=== PATIENT | female | born 1965 | race African-American/Black ===

== ENCOUNTER 2016-10-26 20:13 | Emergency (ER) | payer OTHER ==
[2016-10-26 20:21] VITALS: BP 101/65; PULSE 100; TEMP 98; BMI 28.8
[2016-10-26] MEDS ORDERED: predniSONE 20 MG TABLET (UD) PO ONE (21:14)
[2016-10-26] MEDS ORDERED: AMOX TR/POT CLAV 875MG/125MG TABLETS (FP) PO ONE (21:14)
--- NOTE | 2016-10-26 21:14 | PDOC ---
History of Present Illness - General Chief Complaint: Sore Throat Stated Complaint: SIDE FACE/EAR/THROAT HURT Time Seen by Provider: 10/26/16 20:35 History Source: Patient Exam Limitations: No Limitations - History of Present Illness Initial Comments: 10/26/16 21:14 Chief complaint: Severe nasal congestion, with postnasal dri, sore throat, clogged sensation rt. 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 She reports that she's had o'clock sensation to her right ear for approximately a year however no last few days it' s worse. She denies any fever area patient reports that her son was sick sick with similar symptoms. Patient denies any cough or any difficulty swallowing or breathing or any wheezing. Patient has been using Nataly, Zyrtec, Singulair, flonase and azelastine nasal spray daily out relief of symptoms. She denies any recent travel. 10/26/16 21:18 Timing/Duration: getting worse Severity: moderate Associated Symptoms: reports: other (SINUS PRESSURE RT. MAXILLA & FRONTAL SINUS AREA, NASAL CONGESTION, RT. EAR CLOGGED SENSATION, POST NASAL DRIP, NASAL DISCHARGE YELLOWISH) Past History - Past Medical History Allergies/Adverse Reactions: Allergies Allergy/AdvReac Type Severity Reaction Status Date / Time No Known Allergies Allergy Verified 10/26/16 20:21 Home Medications: Ambulatory Orders Azelastine HCl 137 mcg NS PRN PRN 10/28/14 Amox-Tr/K Cl [Augmentin - 875Mg Tablet] 1 tab PO BID #19 tablet 10/26/16 Prednisone [Deltasone] 20 mg PO BID #8 tablet 10/26/16 Tizanidine HCl 2 mg PO ASDIR 10/26/16 Anemia: No Asthma: Yes Cardiac Disorders: No CVA: No COPD: No CHF: No Diabetes: No GI Disorders: No Disorders: No HTN: Yes (ON MEDS.) Hypercholesterolemia: Yes (NOT ON MED) Kidney Stones: No Liver Disease: No Suicide Attempt (Hx): No Seizures: No Thyroid Disease: Yes (THYROID PROBLEM--H"HIGH THYROID" BUT NOT TAKING ANYTHING) - Surgical History Abdominal Surgery: Yes (g.sleeve) Orthopedic Surgery: Yes (SPINE SX DUE TO TUMOR IN SPINE 04/2012) - Reproductive History PID: No - Immunization History Td Vaccination: Yes Immunization Up to Date: Yes - Psycho/Social/Smoking Cessation Hx Anxiety: Yes Suicidal Ideation: No Smoking Status: No Smoking History: Never smoked Years of Tobacco Use: 2 Have you smoked in the past 12 months: Yes Number of Cigarettes Smoked Daily: 4 Cigars Per Day: 0 'Breaking Loose' booklet given: 10/28/14 Hx Alcohol Use: No Drug/Substance Use Hx: Yes (OXYCODONE/PERCOCETS) Substance Use Type: Prescribed Hx Substance Use Treatment: Yes Review of Systems - Review of Systems Able to Perform ROS?: Yes Constitutional: No: Symptoms Reported HEENTM: Yes: Nose Congestion (getting worse especially on rt. with discharge yellowish ), Throat Pain, Mouth Swelling (with post nasal dripo), Other (rt. sinus congestion maxilla, rt. frontal) Respiratory: No: Symptoms reported Cardiac (ROS): No: Symptoms Reported ABD/GI: No: Symptoms Reported Musculoskeletal: No: Symptoms Reported Integumentary: No: Symptoms Reported Neurological: No: Symptoms reported *Physical Exam - Vital Signs Last Vital Signs Temp Pulse Resp BP Pulse Ox 98 F 100 H 18 101/65 99 10/26/16 20:18 10/26/16 20:18 10/26/16 20:18 10/26/16 20:18 10/26/16 20:18 - Physical Exam General Appearance: Yes: Appropriately Dressed HEENT: positive: TMs Normal (rt. ), Pharyngeal Erythema, Tonsillar Erythema ( with no uvular deviation ]), Nasal Congestion (rt and left superior turbinate edema worse on rt. ), Sinus Tenderness (rt. maxilla, rt. frontal ), Hearing Grossly Normal (b/l ), TM Erythema (minimal rt. ear ). negative: TM Bulging, TM Dull Neck: negative: Lymphadenopathy (R), Lymphadenopathy (L) Respiratory/Chest: positive: Lungs Clear, Normal Breath Sounds. 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 She reports that she's had o'clock sensation to her right ear for approximately a year however no last few days it's worse. She denies any fever area patient reports that her son was sick sick with similar symptoms. Patient denies any cough or any difficulty swallowing or breathing or any wheezing. Patient has been using Nataly, Zyrtec, Singulair, flonase and azelastine nasal spray daily out relief of symptoms. She denies any recent travel. She reports that she has been followed by Dr. Bearden in the past for her sinus problems and chronic nasal congestion congestion Nasal congestion severe Sinusitis Plan: Augmentin 875/125 twice a day 10 days Prednisone 40 mg by mouth now then 20 mg twice a day times following 4 days Follow-up with ear nose and throat Dr. Bearden. *DC/Admit/Observation/Transfer Diagnosis at time of Disposition: Nasal congestion Sinusitis Qualifiers: Sinusitis location: unspecified location Chronicity: acute Recurrence: non- recurrent Qualified Code(s): J01.90 - Acute sinusitis, unspecified - Discharge Dispostion Disposition: HOME Condition at time of disposition: Stable - Prescriptions Prescriptions: Amox-Tr/K Cl [Augmentin - 875Mg Tablet] 1 tab PO BID #19 tablet Prednisone [Deltasone] 20 mg PO BID #8 tablet - Referrals Referrals: Zoran Bearden MD [Staff Physician] - - Patient Instructions Additional Instructions: fOLLow up with ear nose and throat Dr. Bearden as soon as possible Return to emergency room if symptoms worsen or new symptoms develop Continue with nasal sprays and antihistamines as previously ordered Patient voiced understanding of discharge instructions and all questions were answered
[2016-10-26] MEDS ORDERED: predniSONE 20 MG TABLET (UD) ONE (21:25)
[2016-10-26] MEDS ORDERED: AMOX TR/POT CLAV 875MG/125MG TABLETS (FP) ONE (21:25)
== END 2016-10-26 22:19 | disposition home or self-care (01) ==
LOC: JERFT 20:13
DX: R09.89 Other specified symptoms and signs involving the circulatory and respiratory systems (principal); J01.90 Acute sinusitis, unspecified; J45.909 Unspecified asthma, uncomplicated; Z72.0 Tobacco use
CPT/HCPCS: 99281-25

== ENCOUNTER 2017-03-17 19:56 | Emergency (ER) | payer OTHER ==
[2017-03-17 20:09] VITALS: TEMP 97.8; BMI 30.7
--- NOTE | 2017-03-17 20:26 | PDOC ---
History of Present Illness - History of Present Illness Initial Comments: 03/17/17 21:11 The patient is a 51 year old with a history of thyroid disease, HTN, and chronic neck and back pain who presents for evaluation of chest pain and SOB after smoking marijuana. The patient reports that she smoked marijuana earlier today. Earlier this evening, she began experiencing heart palpitations, poorly described chest pain and SOB with associated dizziness prompting her presentation to the ED today. She denies fevers, chills, abdominal pain, nausea , vomiting, or changes with urination or bowel movements. She states that she has never used marijuana in the past and denies any other illicit drug use. She denies smoking or alcohol use as well. <Ousmane Aleman - Last Filed: 03/17/17 23:59> <Julio Guevara - Last Filed: 03/18/17 00:58> - General Chief Complaint: Substance Abuse Stated Complaint: CHEST PAIN Time Seen by Provider: 03/17/17 20:19 Past History - Past Medical History Anemia: No Asthma: Yes Cardiac Disorders: No CVA: No COPD: No CHF: No Diabetes: No GI Disorders: No Disorders: No HTN: Yes (ON MEDS.) Hypercholesterolemia: Yes (NOT ON MED) Kidney Stones: No Liver Disease: No Seizures: No Thyroid Disease: Yes (THYROID PROBLEM--H"HIGH THYROID" BUT NOT TAKING ANYTHING) - Surgical History Abdominal Surgery: Yes (g.sleeve) Orthopedic Surgery: Yes (SPINE SX DUE TO TUMOR IN SPINE 04/2012) - Reproductive History PID: No - Immunization History Td Vaccination: Yes Immunization Up to Date: Yes - Suicide/Smoking/Psychosocial Hx Smoking Status: No Smoking History: Current some day smoker Years of Tobacco Use: 2 Have you smoked in the past 12 months: Yes Number of Cigarettes Smoked Daily: 4 Cigars Per Day: 0 Information on smoking cessation initiated: No 'Breaking Loose' booklet given: 10/28/14 Hx Alcohol Use: No Drug/Substance Use Hx: Yes (marajuana) Substance Use Type: Prescribed Hx Substance Use Treatment: Yes <Ousmane Aleman - Last Filed: 03/17/17 23:59> <Julio Guevara - Last Filed: 03/18/17 00:58> - Past Medical History Allergies/Adverse Reactions: Allergies Allergy/AdvReac Type Severity Reaction Status Date / Time No Known Allergies Allergy Verified 03/17/17 20:07 Home Medications: Ambulatory Orders Azelastine HCl 137 mcg NS PRN PRN 10/28/14 Amox-Tr/K Cl [Augmentin - 875Mg Tablet] 1 tab PO BID #19 tablet 10/26/16 Tizanidine HCl 2 mg PO ASDIR 10/26/16 Review of Systems - Review of Systems Comments:: 03/17/17 21:16 Constitutional: No fevers, chills, fatigue, malaise HEENT: No Rhinorrhea, nasal congestion, Cardiovascular: Chest pain. No syncope, palpitations, lightheadedness Respiratory: SOB. No Cough, Hemoptysis, Gastrointestinal: No Abdominal pain, Nausea, Vomiting, Constipation, Diarrhea, Melena Genitourinary: No Dysuria, Frequency, Urgency, Hesitancy, Hematuria, Flank pain Musculoskeletal: No Myalgia, arthralgia Skin: No rashes, itching, bruising, pallor Neurologic: Dizziness. No Headache, Numbness, Weakness, or Tingling <Ousmane Aleman - Last Filed: 03/17/17 23:59> *Physical Exam - Vital Signs Last Vital Signs Temp Pulse Resp BP Pulse Ox 97.8 F 129 H 18 144/76 95 03/17/17 20:07 03/17/17 20:07 03/17/17 20:07 03/17/17 20:07 03/17/17 20:07 - Physical Exam Comments: 03/17/17 21:17 General Appearance: Nourished. No Apparent Distress HEENT: EOMI, ZELAL[place]. No Pharyngeal Erythema, Tonsillar Exudate, Tonsillar Erythema Neck: No Cervical Lymphadenopathy Respiratory/Chest: Lungs Clear, Normal Breath Sounds. No Crackles, Rales, Rhonchi, Wheezing Cardiovascular: Regular Rhythm, Tachycardic. No JVD, Murmur, Gallops, Rubs Gastrointestinal/Abdominal: Normal Bowel Sounds, Soft. 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 <Ousmane Aleman - Last Filed: 03/17/17 23:59> - Vital Signs Last Vital Signs Temp Pulse Resp BP Pulse Ox 97.8 F 129 H 18 144/76 95 03/17/17 20:07 03/17/17 20:07 03/17/17 20:07 03/17/17 20:07 03/17/17 20:07 <Julio Guevara - Last Filed: 03/18/17 00:58> ED Treatment Course - LABORATORY CBC & Chemistry Diagram: 03/17/17 20:40 03/17/17 20:40 <Ousmane Aleman - Last Filed: 03/17/17 23:59> - LABORATORY CBC & Chemistry Diagram: 03/17/17 20:40 03/17/17 20:40 - ADDITIONAL ORDERS Additional order review: Laboratory Results 03/17/17 03/17/17 03/17/17 22:20 20:50 20:50 Sodium Potassium Chloride Carbon Dioxide Anion Gap BUN Creatinine Creat Clearance w eGFR Random Glucose Calcium Total Bilirubin AST ALT Alkaline Phosphatase Creatine Kinase Troponin I Total Protein Albumin Serum , Qual Negative Urine Color Dkyellow Urine Appearance Slcloudy Urine pH 5.0 D Ur Specific [place] 1.031 Urine Protein 2+ H Urine Glucose (UA) Negative Urine Ketones Negative Urine Blood Negative Urine Nitrite Negative Urine Bilirubin Negative Urine Urobilinogen Negative Urine RBC 1 Urine WBC 8 Ur Epithelial Cells Rare Urine Bacteria Rare Hyaline Casts 18 Urine Mucus Many Opiates Screen Negative Methadone Screen Negative Barbiturate Screen Negative Phencyclidine Screen Negative Ur Amphetamines Screen Negative MDMA (Ecstasy) Screen Negative Benzodiazepines Screen Negative Cocaine Screen Negative U Marijuana (THC) Screen Positive 03/17/17 20:40 Sodium 139 Potassium 3.2 L Chloride 106 Carbon Dioxide 23 Anion Gap 10 BUN 19 H Creatinine 1.0 D Creat Clearance w eGFR 58.00 Random Glucose 159 H D Calcium 8.4 L Total Bilirubin 0.4 D AST 25 D ALT 27 Alkaline Phosphatase 87 Creatine Kinase 116 Troponin I < 0.02 Total Protein 6.8 Albumin 3.4 Serum , Qual Urine Color Urine Appearance Urine pH Ur Specific [place] Urine Protein Urine Glucose (UA) Urine Ketones Urine Blood Urine Nitrite Urine Bilirubin Urine Urobilinogen Urine RBC Urine WBC Ur Epithelial Cells Urine Bacteria Hyaline Casts Urine Mucus Opiates Screen Methadone Screen Barbiturate Screen Phencyclidine Screen Ur Amphetamines Screen MDMA (Ecstasy) Screen Benzodiazepines Screen Cocaine Screen U Marijuana (THC) Screen 03/17/17 20:40 RBC 3.96 MCV 91.1 MCHC 33.3 RDW 16.1 H MPV 8.4 Neutrophils % 52.6 Lymphocytes % 38.2 Monocytes % 7.0 Eosinophils % 1.1 Basophils % 1.1 - Medications Given in the ED: ED Medications Discontinued Medications Generic Name Dose Route Start Last Admin Trade Name Martha PRN Reason Stop Dose Admin Sodium Chloride 1,000 mls @ 1,000 mls/hr 03/17/17 22:00 03/17/17 22:06 Normal Saline - IV 03/17/17 22:59 1,000 mls/hr ASDIR STA Administration Potassium Chloride 40 meq 03/17/17 22:07 03/17/17 22:18 K-Dur - PO 03/17/17 22:08 40 meq ONCE ONE Administration <Julio Guevara - Last Filed: 03/18/17 00:58> Medical Decision Making - Medical Decision Making 03/17/17 21:18 The patient is a 51 year old with a history of thyroid disease, HTN, and chronic neck and back pain who presents for evaluation of chest pain and SOB after smoking marijuana. Given her presenting symptoms with a normal physical exam following marijuana use, it is likely her pain is due to her marijuana use. However it is reasonable to evaluate for other etiologies including but not limited to: ACS, pneumonia, metabolic derangement. We have a low clinical suspicion for acs at this time given her physical exam and history. We will send a cbc, cmp, troponin, EKG, chest plain film, UA, and Utox to evaluate further. We will continue to monitor and reassess. 03/17/17 23:59 cbc demonstrated a wbc of 11.3. cmp, troponin was unremarkable as well as chest plain film. UA was unremarkable. Utox was positive for marijuana. Repeat ekg demonstrates normal sinus rhythm with a rate of 81. The patient reports an improvement in her symptoms after NS. We will repeat her troponin. Likely discharge home if troponin is negative. <Ousmane Aleman - Last Filed: 03/17/17 23:59> *DC/Admit/Observation/Transfer <Ousmane Aleman - Last Filed: 03/17/17 23:59> <Julio Guevara - Last Filed: 03/18/17 00:58> Diagnosis at time of Disposition: Substance abuse, Chest pain - Discharge Dispostion Disposition: HOME Condition at time of disposition: Improved - Referrals Referrals: Shahriar Das MD [Primary Care Provider] - - Patient Instructions Printed Discharge Instructions: DI for Chest Pain Additional Instructions: Please return to ED if you experience crushing chest pain, worsening shortness of breath, or worsening symptoms.
[2017-03-17 20:53] LABS: BASOPHIL 1.1 % (0-2.0); EOSINOPHIL 1.1 % (0-4.5); MCH 30.3 pg (25.7-33.7); MCHC 33.3 g/dl (32.0-36.0); MEAN CELL VOLUME 91.1 fl (80-96); MEAN PLT VOLUME 8.4 fl (7.5-11.1); NEUTROPHILS 52.6 % (42.8-82.8); PLATELET COUNT 248 K/MM3 (134-434); RDW 16.1 % (11.6-15.6); WHITE BLOOD COUNT 11.3 K/mm3 (4.0-10.0)
[2017-03-17 21:17] LABS: ALBUMIN 3.4 g/dl (3.4-5.0); ANION GAP 10 (8-16); BILIRUBIN,TOTAL 0.4 mg/dL (0.2-1.0); CALCIUM 8.4 mg/dL (8.5-10.1); CO2 23 mmol/L (21-32); GLUCOSE,RANDOM 159 mg/dL (74-106); SGPT/ALT 27 U/L (12-78); TOT PROT 6.8 g/dl (6.4-8.2)
[2017-03-17 21:19] LABS: ALK PHOS 87 U/L (45-117); TROPONIN I < 0.02 ng/ml (0.00-0.05)
[2017-03-17 21:20] LABS: CPK 116 IU/L (26-192); SGOT/AST 25 U/L (15-37)
[2017-03-17] MEDS ORDERED: SODIUM CHLORIDE 1,000 ML IV STA (22:00)
[2017-03-17] MEDS ORDERED: POTASSIUM CHLORIDE TABS 20 MEQ TABLET.ER (FP) PO ONE ×2 (22:07→22:15)
[2017-03-17 22:29] LABS: URINE APPEARANCE SLCLOUDY; URINE BILIRUBIN NEGATIVE (NEGATIVE); URINE BLOOD NEGATIVE (NEGATIVE); URINE COLOR DKYELLOW; URINE GLUCOSE (UA) NEGATIVE (NEGATIVE); URINE KETONE NEGATIVE (NEGATIVE); URINE NITRITE NEGATIVE (NEGATIVE); URINE UROBILINOGEN NEGATIVE mg/dL (0.2-1.0)
[2017-03-17 23:01] LABS: URINE PROTEIN 2+ (NEGATIVE)
[2017-03-17 23:05] LABS: URINE MARIJUANA THC POSITIVE ng/ml (CUTOFF=50)
[2017-03-17 23:13] LABS: URINE BACTERIA RARE /hpf (NONE SEEN); URINE HYALINE CAST 18 /lpf; URINE MUCUS MANY; URINE RBC 1 /hpf (0-3); URINE WBC 8 /hpf (3-5)
--- NOTE | 2017-03-18 00:51 | PDOC ---
*Physical Exam - Vital Signs Last Vital Signs Temp Pulse Resp BP Pulse Ox 97.8 F 129 H 18 144/76 95 03/17/17 20:07 03/17/17 20:07 03/17/17 20:07 03/17/17 20:07 03/17/17 20:07 - Physical Exam Comments: 03/18/17 00:51 GENERAL: Awake, alert, and fully oriented, in no acute distress HEAD: No signs of trauma, normocephalic, atraumatic EYES: PERRLA, EOMI, sclera anicteric, conjunctiva clear ENThearing grossly normal, nares patent, oropharynx clear without exudates. Moist mucosa NECK: Normal ROM, supple, no lymphadenopathy, JVD, or masses LUNGS: No distress, speaks full sentences, clear to auscultation bilaterally HEART: Regular rate and rhythm, normal S1 and S2, no murmurs, rubs or gallops, peripheral pulses normal and equal bilaterally. EXTREMITIES : Normal inspection, Normal range of motion, no edema. No clubbing or cyanosis. SKIN: Warm, Dry, normal turgor, no rashes or lesions noted. ED Treatment Course - LABORATORY CBC & Chemistry Diagram: 03/17/17 20:40 03/17/17 20:40 - ADDITIONAL ORDERS Additional order review: Laboratory Results 03/17/17 03/17/17 03/17/17 22:20 20:50 20:50 Sodium Potassium Chloride Carbon Dioxide Anion Gap BUN Creatinine Creat Clearance w eGFR Random Glucose Calcium Total Bilirubin AST ALT Alkaline Phosphatase Creatine Kinase Troponin I Total Protein Albumin Serum , Qual Negative Urine Color Dkyellow Urine Appearance Slcloudy Urine pH 5.0 D Ur Specific [place] 1.031 Urine Protein 2+ H Urine Glucose (UA) Negative Urine Ketones Negative Urine Blood Negative Urine Nitrite Negative Urine Bilirubin Negative Urine Urobilinogen Negative Urine RBC 1 Urine WBC 8 Ur Epithelial Cells Rare Urine Bacteria Rare Hyaline Casts 18 Urine Mucus Many Opiates Screen Negative Methadone Screen Negative Barbiturate Screen Negative Phencyclidine Screen Negative Ur Amphetamines Screen Negative MDMA (Ecstasy) Screen Negative Benzodiazepines Screen Negative Cocaine Screen Negative U Marijuana (THC) Screen Positive 03/17/17 20:40 Sodium 139 Potassium 3.2 L Chloride 106 Carbon Dioxide 23 Anion Gap 10 BUN 19 H Creatinine 1.0 D Creat Clearance w eGFR 58.00 Random Glucose 159 H D Calcium 8.4 L Total Bilirubin 0.4 D AST 25 D ALT 27 Alkaline Phosphatase 87 Creatine Kinase 116 Troponin I < 0.02 Total Protein 6.8 Albumin 3.4 Serum , Qual Urine Color Urine Appearance Urine pH Ur Specific [place] Urine Protein Urine Glucose (UA) Urine Ketones Urine Blood Urine Nitrite Urine Bilirubin Urine Urobilinogen Urine RBC Urine WBC Ur Epithelial Cells Urine Bacteria Hyaline Casts Urine Mucus Opiates Screen Methadone Screen Barbiturate Screen Phencyclidine Screen Ur Amphetamines Screen MDMA (Ecstasy) Screen Benzodiazepines Screen Cocaine Screen U Marijuana (THC) Screen 03/17/17 20:40 RBC 3.96 MCV 91.1 MCHC 33.3 RDW 16.1 H MPV 8.4 Neutrophils % 52.6 Lymphocytes % 38.2 Monocytes % 7.0 Eosinophils % 1.1 Basophils % 1.1 - Medications Given in the ED: ED Medications Discontinued Medications Generic Name Dose Route Start Last Admin Trade Name Freq PRN Reason Stop Dose Admin Sodium Chloride 1,000 mls @ 1,000 mls/hr 03/17/17 22:00 03/17/17 22:06 Normal Saline - IV 03/17/17 22:59 1,000 mls/hr ASDIR STA Administration Potassium Chloride 40 meq 03/17/17 22:07 03/17/17 22:18 K-Dur - PO 03/17/17 22:08 40 meq ONCE ONE Administration Medical Decision Making - Medical Decision Making 03/18/17 00:50 51 year old F with h/o of thyroid disease, HTN, who presents with chest pain and SOB after smoking marijuana. Physical exam unremarkable with low suspicion for ACS/DE . Consider pneumonia, metabolic derangement. Cbc, Cmp, troponin, EKG , CXR, UA, unremarkable. Utox positive for marijuana. Initial EKG with sinus tachycardia. Repeat EKG NSR. Improvement of symptoms with gentle IV hydration NS. Repeat Trop and reassess. Received Handoff from Dr. Aleman. ED Course: 03/18/17 00:54 Trop: Neg Stable D/c. *DC/Admit/Observation/Transfer Diagnosis at time of Disposition: Substance abuse Chest pain Qualifiers: Chest pain type: other chest pain Qualified Code(s): R07.89 - Other chest pain ; R07.89 - Other chest pain; R07.8 - Other chest pain - Discharge Dispostion Disposition: HOME Condition at time of disposition: Improved Admit: No - Patient Instructions Printed Discharge Instructions: DI for Chest Pain Additional Instructions: Please return to ED if you experience crushing chest pain, worsening shortness of breath, or worsening symptoms. - Attestations Physician Attestion: 03/18/17 00:57 I attest to the information provided in this note.
[2017-03-18 00:55] LABS: CPK 77 IU/L (26-192)
[2017-03-18 00:56] LABS: TROPONIN I < 0.02 ng/ml (0.00-0.05)
--- NOTE | 2017-03-18 01:24 | PDOC ---
Attending Attestation - Resident Resident Name: Ousmane Aleman - ED Attending Attestation I have performed the following: I have examined & evaluated the patient, The case was reviewed & discussed with the resident, I agree w/resident's findings & plan, Exceptions are as noted - HPI HPI: 03/18/17 01:23 51 yo female smoked marihuana tonight and dev tachycardia - Physicial Exam PE: 03/18/17 01:24 wnwd 51 yo female initially tachycardic and anxious HEENT wnl neck no jvd,no bruits lungs cta b/l cvs tachy abd soft,nontender extremities no pitting edema neuro axox3, no gross focal deficits skin no rashes psych appropriate - Medical Decision Making 03/18/17 01:27 2 sets negative cardiac enzymes/pt feels fine after IVF and now wants to go home repeat ekg is NSR imp Palpitations related to drug use
[2017-03-18 01:31] VITALS: BP 143/76; PULSE 91
[2017-03-18 09:15] LABS: URINE LEUK ESTERASE Negative (NEGATIVE)
--- NOTE | 2017-03-18 13:52 | EKG ---
Test Reason : Blood Pressure : / mmHG Vent. Rate : 081 BPM Atrial Rate : 081 BPM P-R Int : 168 ms QRS Dur : 090 ms QT Int : 434 ms P-R-T Axes : 072 005 047 degrees QTc Int : 504 ms NORMAL SINUS RHYTHM PROLONGED QT ABNORMAL ECG NO PREVIOUS ECGS AVAILABLE REPEAT EKG IF CLINICALLY INDICATED Confirmed by DEYANIRA MULLEN MD ([id number]) on 03/18/2017 1:51:46 PM Referred By: Confirmed By:DEYANIRA MULLEN MD
--- NOTE | 2017-03-19 11:57 | EKG ---
Test Reason : Blood Pressure : / mmHG Vent. Rate : 128 BPM Atrial Rate : 128 BPM P-R Int : 150 ms QRS Dur : 102 ms QT Int : 304 ms P-R-T Axes : 047 -33 077 degrees QTc Int : 443 ms POOR DATA QUALITY, INTERPRETATION MAY BE ADVERSELY AFFECTED SINUS TACHYCARDIA POSSIBLE LEFT ATRIAL ENLARGEMENT LEFT AXIS DEVIATION NONSPECIFIC ST AND T WAVE ABNORMALITY ABNORMAL ECG NO PREVIOUS ECGS AVAILABLE Confirmed by DONA VALLE, CHUCK ([id number]) on 03/19/2017 11:57:06 AM Referred By: Confirmed By:CHUCK CARCAMO MD
== END 2017-03-18 01:32 | disposition home or self-care (01) ==
LOC: JER 19:56
PROC: 3E0337Z Introduction of Electrolytic and Water Balance Substance into Peripheral Vein, Percutaneous Approach (ICD-10-PCS; principal; 2017-03-17)
DX: F12.10 Cannabis abuse, uncomplicated (principal); E07.89 Other specified disorders of thyroid; M54.2 Cervicalgia; M54.5 Low back pain; G89.29 Other chronic pain; E87.6 Hypokalemia
CPT/HCPCS: 36415; 71020-TC; 80053; 80307; 81003; 81015; 82550; 84484; 84703; 85025; 93005; 93010; 99283-25

== ENCOUNTER 2017-04-20 16:40 | Emergency (ER) | payer OTHER ==
[2017-04-20 16:46] VITALS: BP 151/75; PULSE 90; TEMP 97.6; BMI 29.3
--- NOTE | 2017-04-20 17:01 | PDOC ---
History of Present Illness - General Chief Complaint: Injury Stated Complaint: FALL INJURY Time Seen by Provider: 04/20/17 16:54 History Source: Patient Exam Limitations: No Limitations - History of Present Illness Initial Comments: 04/20/17 22:34 51 y/o female with c/o rt sided back , neck and wrist pain after falling in a department store. Pt did not hit her head but states hx of cervical fusion and laminectomy with hardware. Occurred: reports: just prior to arrival Past History - Past Medical History Allergies/Adverse Reactions: Allergies Allergy/AdvReac Type Severity Reaction Status Date / Time No Known Allergies Allergy Verified 04/20/17 16:46 Home Medications: Ambulatory Orders Cyclobenzaprine HCl [Flexeril -] 5 mg PO TID PRN #12 tablet 04/20/17 Ibuprofen [Motrin -] 600 mg PO TID PRN #21 tablet 04/20/17 Anemia: No Asthma: Yes Cardiac Disorders: No CVA: No COPD: No CHF: No Diabetes: No GI Disorders: No Disorders: No HTN: Yes Hypercholesterolemia: Yes Kidney Stones: No Liver Disease: No Seizures: No Thyroid Disease: Yes (THYROID PROBLEM--H"HIGH THYROID" BUT NOT TAKING ANYTHING) - Surgical History Abdominal Surgery: Yes (g.sleeve) Gastric Stapling: No (GASTRIC SLEEVE) Orthopedic Surgery: Yes (SPINE SX DUE TO TUMOR IN SPINE 04/2012) - Reproductive History PID: No - Immunization History Td Vaccination: Yes Immunization Up to Date: Yes - Suicide/Smoking/Psychosocial Hx Smoking Status: No Smoking History: Never smoked Years of Tobacco Use: 2 Have you smoked in the past 12 months: Yes Number of Cigarettes Smoked Daily: 4 Cigars Per Day: 0 'Breaking Loose' booklet given: 10/28/14 Hx Alcohol Use: No Drug/Substance Use Hx: No Substance Use Type: None Hx Substance Use Treatment: Yes Trauma Specific PMHX - Complaint Specific PMHX Arthritis: Yes (HANDS KNEES FEET) Review of Systems - Review of Systems Able to Perform ROS?: Yes Constitutional: No: Symptoms Reported Musculoskeletal: Yes: Back Pain, Joint Pain, Neck Pain Integumentary: No: Symptoms Reported Neurological: No: Symptoms reported *Physical Exam - Vital Signs Last Vital Signs Temp Pulse Resp BP Pulse Ox 97.6 F 90 20 151/75 100 04/20/17 16:41 04/20/17 16:41 04/20/17 16:41 04/20/17 16:41 04/20/17 16:41 - Physical Exam General Appearance: Yes: Nourished, Appropriately Dressed. No: Apparent Distress HEENT: positive: EOMI, ZELALEM, TMs Normal. negative: Pharynx Normal, Pale Conjunctivae Neck: positive: Tender (C5 to C7), Supple. negative: Decreased range of motion Respiratory/Chest: positive: Lungs Clear, Normal Breath Sounds. negative: Chest Tender, Respiratory Distress, Accessory Muscle Use Gastrointestinal/Abdominal: positive: Soft. negative: Tenderness Musculoskeletal: positive: Vertebral Tenderness (l2-L5. bilateral paraspinous) Extremity: positive: Normal Capillary Refill, Normal Inspection, Normal Range of Motion, Tender (dorsal aspect of right wrist) Integumentary: positive: Normal Color, Warm, Moist. negative: Ecchymosis Neurologic: positive: Motor Strength 5/5 (ambulatory) Medical Decision Making - Medical Decision Making 04/20/17 18:00 Patient with complaints of back pain and right wrist pain along with neck pain after falling at a department store. Patient had tenderness to her cervical and lumbar region along with her right wrist. Patient history of laminectomy with cervical fusion. Patient ordered for x-rays of the right wrist cervical, lumbar region. 04/20/17 18:16 X-rays negative for acute findings. Patient ordered for Motrin and will discharge home with Motrin and Flexeril. *DC/Admit/Observation/Transfer Diagnosis at time of Disposition: Fall - Discharge Dispostion Disposition: HOME Condition at time of disposition: Good - Prescriptions Prescriptions: Cyclobenzaprine HCl [Flexeril -] 5 mg PO TID PRN #12 tablet PRN Reason: Back Pain Ibuprofen [Motrin -] 600 mg PO TID PRN #21 tablet PRN Reason: Pain - Referrals - Patient Instructions Printed Discharge Instructions: DI for Low Back Pain Additional Instructions: Your x-rays were negative for fracture or dislocation. I do recommend taking Motrin and Flexeril for discomfort. Also apply ice to the affected area for the next 3 days as much as you can tolerate. - Post Discharge Activity
[2017-04-20] MEDS ORDERED: IBUPROFEN 600 MG TABLET (FP) PO ONE ×2 (18:10→18:12)
== END 2017-04-20 18:20 | disposition home or self-care (01) ==
LOC: JERFT 16:40
DX: M54.2 Cervicalgia (principal); M54.5 Low back pain; M25.531 Pain in right wrist; W18.39XA Other fall on same level, initial encounter; Y93.89 Activity, other specified; Y92.59 Other trade areas as the place of occurrence of the external cause; Y99.8 Other external cause status; I10 Essential (primary) hypertension; E78.00 Pure hypercholesterolemia, unspecified; J45.909 Unspecified asthma, uncomplicated
CPT/HCPCS: 72050-TC; 72100-TC; 73110-TC-RT; 99281-25

== ENCOUNTER 2018-04-26 10:34 | Emergency (ER) | payer OTHER ==
[2018-04-26 10:49] VITALS: BP 104/64; PULSE 89; TEMP 98; BMI 31.7
--- NOTE | 2018-04-26 11:30 | PDOC ---
History of Present Illness - General Chief Complaint: Injury Stated Complaint: LT HAND INJURY Time Seen by Provider: 04/26/18 11:03 History Source: Patient Exam Limitations: No Limitations - History of Present Illness Initial Comments: 04/26/18 11:56 Patient came for evaluation of infection to left middle digit. States had hangnail/paronychia which she chewed a few days ago which caused worsen swelling and pain. States had some fluctuant and purulent drainage released this morning. Was going to in size with a paperclip but decided to calm for further evaluation. Denies fever, has some mild swelling. Occurred: reports: just prior to arrival, yesterday Severity: reports: mild, moderate Pain Location: reports: upper extremity (left 3rd digit ) Past History - Travel Traveled outside of the country in the last 30 days: No Close contact w/someone who was outside of country & ill: No - Past Medical History Allergies/Adverse Reactions: Allergies Allergy/AdvReac Type Severity Reaction Status Date / Time No Known Allergies Allergy Verified 04/26/18 10:45 Home Medications: Ambulatory Orders Montelukast Sodium [Singulair] 10 mg PO HS 04/26/18 Sulfamethoxazole/Trimethoprim [Bactrim *Ds*] 1 each PO BID #10 tablet 04/26/18 Anemia: No Asthma: Yes Cardiac Disorders: No CVA: No COPD: No CHF: No Diabetes: No GI Disorders: No Disorders: No HTN: Yes Hypercholesterolemia: Yes Kidney Stones: No Liver Disease: No Seizures: No Thyroid Disease: Yes (THYROID PROBLEM--H"HIGH THYROID" BUT NOT TAKING ANYTHING) - Surgical History Abdominal Surgery: Yes (g.sleeve) Gastric Stapling: No (GASTRIC SLEEVE) Orthopedic Surgery: Yes (SPINE SX DUE TO TUMOR IN SPINE 04/2012) - Reproductive History PID: No - Immunization History Td Vaccination: Yes Immunization Up to Date: Yes - Suicide/Smoking/Psychosocial Hx Smoking Status: No Smoking History: Never smoked Years of Tobacco Use: 2 Have you smoked in the past 12 months: Yes Number of Cigarettes Smoked Daily: 4 Cigars Per Day: 0 'Breaking Loose' booklet given: 10/28/14 Hx Alcohol Use: No Drug/Substance Use Hx: No Substance Use Type: None Hx Substance Use Treatment: Yes Trauma Specific PMHX - Complaint Specific PMHX Arthritis: Yes (HANDS KNEES FEET) Review of Systems - Review of Systems Able to Perform ROS?: Yes Is the patient limited Maltese proficient: Yes Constitutional: Yes: Symptoms Reported, See HPI, Malaise HEENTM: Yes: See HPI. No: Symptoms Reported Respiratory: No: Symptoms reported Integumentary: Yes: Symptoms Reported, See HPI, Erythema, Lesions All Other Systems: Reviewed and Negative *Physical Exam - Vital Signs Last Vital Signs Temp Pulse Resp BP Pulse Ox 98.0 F 89 18 104/64 100 04/26/18 10:45 04/26/18 10:45 04/26/18 10:45 04/26/18 10:45 04/26/18 10:45 - Physical Exam General Appearance: Yes: Nourished, Appropriately Dressed, Apparent Distress, Mild Distress HEENT: positive: ZELALEM, Normal ENT Inspection, TMs Normal, Pharynx Normal Neck: positive: Supple. negative: Tender Respiratory/Chest: positive: Lungs Clear Musculoskeletal: positive: Normal Inspection Extremity: positive: Normal Capillary Refill, Normal Range of Motion. negative : Normal Inspection Integumentary: positive: Other (Mild swelling without fluctuance to the distal radial aspect of left third digit/paronychial infection with some macerated skin urine has full range of motion to finger, has no joint tenderness, no streaking. Bed is intact). negative: Normal Color Neurologic: positive: diet counselor II-XII NML intact, Fully Oriented, Alert, Normal Mood/ Affect Moderate Sedation - Procedure Monitoring Vital Signs: Procedure Monitoring Vital Signs Temperature 98.0 F 04/26/18 10:45 Pulse Rate 89 04/26/18 10:45 Respiratory Rate 18 04/26/18 10:45 Blood Pressure 104/64 04/26/18 10:45 O2 Sat by Pulse Oximetry (%) 100 04/26/18 10:45 Progress Note - Progress Note Progress Note: aronychia infection, incised and drained with minimal purulent drainage/. will start on Bactrim / Boostrix updated today *DC/Admit/Observation/Transfer Diagnosis at time of Disposition: Paronychia of finger of left hand - Discharge Dispostion Disposition: HOME Condition at time of disposition: Stable Decision to Admit order: No - Prescriptions Prescriptions: Sulfamethoxazole/Trimethoprim [Bactrim *Ds*] 1 each PO BID #10 tablet - Referrals Referrals: Marsha Rae MD [Primary Care Provider] - - Patient Instructions Printed Discharge Instructions: DI for Paronychia Additional Instructions: Rest, keep hand elevated Avoid heavy lifting or strenuous activity until healed Soak finger every 2-3 hours while awake for the next 2-3 days to keep continue to allow drainage Reapply bacitracin ointment and bulky dressing after each soaking May use ibuprofen or Tylenol for pain relief Followup with private physician in one to 2 days for wound check as needed Return immediately to emergency department or private doctor's for worsening redness, swelling, pain, streaking Take all of antibiotics until completed - Post Discharge Activity
[2018-04-26] MEDS ORDERED: DIPHTH,PERTUSS(ACELL),TET 0.5 ML DISP.SYRIN IM ONE ×2 (11:56→12:02)
== END 2018-04-26 12:11 | disposition home or self-care (01) ==
LOC: JERFT 10:34
PROC: 3E0234Z Introduction of Serum, Toxoid and Vaccine into Muscle, Percutaneous Approach (ICD-10-PCS; principal; 2018-04-26)
PROC: 0H9QXZZ Drainage of Finger Nail, External Approach (ICD-10-PCS; 2018-04-26)
DX: L03.012 Cellulitis of left finger (principal); Z98.84 Bariatric surgery status; J45.909 Unspecified asthma, uncomplicated; I10 Essential (primary) hypertension; E78.00 Pure hypercholesterolemia, unspecified; E07.9 Disorder of thyroid, unspecified; Z72.0 Tobacco use
CPT/HCPCS: 90715; 99282-25

== ENCOUNTER 2018-10-03 09:48 | Emergency (ER) | payer OTHER ==
[2018-10-03 09:56] VITALS: BP 115/81; PULSE 84; TEMP 97.7; BMI 31.1
[2018-10-03] MEDS ORDERED: PENICILLIN G BENZATHINE 1,200,000 UNIT/2 ML PFS IM ONE (10:44)
[2018-10-03] MEDS ORDERED: DEXAMETHASONE LIQUID 0.5 MG/5 ML 240 ML BULK BOTTLE PO ONE (10:45)
--- NOTE | 2018-10-03 10:45 | PDOC ---
History of Present Illness - General Chief Complaint: Cold Symptoms Stated Complaint: CONGESTED/RT EAR PAIN Time Seen by Provider: 10/03/18 10:07 Past History - Past Medical History Allergies/Adverse Reactions: Allergies Allergy/AdvReac Type Severity Reaction Status Date / Time No Known Allergies Allergy Verified 04/26/18 10:45 Home Medications: Ambulatory Orders Montelukast Sodium [Singulair] 10 mg PO HS 04/26/18 Sulfamethoxazole/Trimethoprim [Bactrim *Ds*] 1 each PO BID #10 tablet 04/26/18 Levocetirizine Dihydrochloride [Xyzal] 5 mg PO DAILY #30 tablet 10/03/18 Methylprednisolone [Medrol Dose Jb] 4 mg PO ASDIR #21 tablet 10/03/18 Anemia: No Asthma: Yes Cardiac Disorders: No CVA: No COPD: No CHF: No Diabetes: No GI Disorders: No Disorders: No HTN: Yes Hypercholesterolemia: Yes Kidney Stones: No Liver Disease: No Seizures: No Thyroid Disease: Yes (THYROID PROBLEM--H"HIGH THYROID" BUT NOT TAKING ANYTHING) - Surgical History Abdominal Surgery: Yes (g.sleeve) Gastric Stapling: No (GASTRIC SLEEVE) Orthopedic Surgery: Yes (SPINE SX DUE TO TUMOR IN SPINE 04/2012) - Reproductive History PID: No - Immunization History Td Vaccination: Yes Immunization Up to Date: Yes - Suicide/Smoking/Psychosocial Hx Smoking Status: No Smoking History: Never smoked Years of Tobacco Use: 2 Have you smoked in the past 12 months: No Number of Cigarettes Smoked Daily: 4 Cigars Per Day: 0 Information on smoking cessation initiated: No 'Breaking Loose' booklet given: 10/28/14 Hx Alcohol Use: No Drug/Substance Use Hx: No Substance Use Type: None Hx Substance Use Treatment: Yes *Physical Exam - Vital Signs Last Vital Signs Temp Pulse Resp BP Pulse Ox 97.7 F 84 18 115/81 100 10/03/18 09:53 10/03/18 09:53 10/03/18 09:53 10/03/18 09:53 10/03/18 09:53 *DC/Admit/Observation/Transfer Diagnosis at time of Disposition: Sinusitis Qualifiers: Sinusitis location: maxillary Chronicity: acute Recurrence: recurrent Qualified Code(s): J01.01 - Acute recurrent maxillary sinusitis - Discharge Dispostion Disposition: HOME Condition at time of disposition: Stable Decision to Admit order: No - Referrals Referrals: Jerad Bennett MD [Staff Physician] - - Patient Instructions Printed Discharge Instructions: DI for Sinusitis Additional Instructions: You were evaluated for your congestion today You have a sinus infection You were treated with bicillin and steroids today You were also sent a prescription for a medrol dose pack. Start taking it tomorrow Follow up with your ENT this week Return to the ER for any new or worsening symptoms - Post Discharge Activity
[2018-10-03] MEDS ORDERED: PENICILLIN G BENZATHINE 2,400,000 UNIT/4 ML PFS ONE (10:50)
[2018-10-03] MEDS ORDERED: DEXAMETHASONE SOD PHOSPHATE 10 MG/1 ML VIAL ONE (10:56)
== END 2018-10-03 11:16 | disposition home or self-care (01) ==
LOC: JERFT 09:48
DX: J01.01 Acute recurrent maxillary sinusitis (principal); I10 Essential (primary) hypertension; E78.00 Pure hypercholesterolemia, unspecified; J45.909 Unspecified asthma, uncomplicated
CPT/HCPCS: 99281-25

== ENCOUNTER 2020-05-17 18:50 | Emergency (ER) | payer OTHER ==
[2020-05-17 18:59] VITALS: BP 110/75; PULSE 94; BMI 32.4
--- OUTSIDE RECORDS SUMMARY | 2020-05-17 19:11 | XMS ---
:1965 Author Organization [facility] Support Name Relationship Address Phone [place] Unavailable [place] [address] JORGE LUIS COMER [address] [place] [address] Re-disclosure Warning The records that you are about to access may contain information from federally- assisted alcohol or drug abuse programs. If such information is present, then the following federally mandated warning applies: This information has been disclosed to you from records protected by federal confidentiality rules (42 CFR part 2). The federal rules prohibit you from making any further disclosure of this information unless further disclosure is expressly permitted by the written consent of the person to whom it pertains or as otherwise permitted by 42 CFR part 2. A general authorization for the release of medical or other information is NOT sufficient for this purpose. The Federal rules restrict any use of the information to criminally investigate or prosecute any alcohol or drug abuse patient.The records that you are about to access may contain highly sensitive health information, the redisclosure of which is protected by Article 27-F of the [facility] Public Health law. If you continue you may haveaccess to information: Regarding HIV / AIDS; Provided by facilities licensed or operated by the [facility] Office of Mental Health; or Provided by the [facility] Office for People With Developmental Disabilities. If such information is present, then the following [facility] mandated warning applies: This information has been disclosed to you from confidential records which are protected by state law. State law prohibits you from making any further disclosure of this information without the specific written consent of the person to whom it pertains, or as otherwise permitted by law. Any unauthorized further disclosure in violation of state law may result in a fine or custodial sentence or both. A general authorization for the release of medical or other information is NOT sufficient authorization for further disclosure. Results ID Date Data Source [id number] 05/02/2020 12:00:00 AM EST [facility] Name Value Range Interpretation Description Data Sup porting Code Source(s) Document(s ) Nasopharyngeal [facility] Swab SARS-CoV-2 / COVID-19 This lab was ordered by [facility] and reported by [facility]. ID Date Data Source [id number] 03/10/2020 11:46:00 AM EDT [facility] Name Value Range Interpretation Code Description Data Rubina rce(s) Supporting Document(s ) Rapid Covid [facility] Test (Nasal Swab) This lab was ordered by [facility] harden and reported by [facility]. Insurance Providers Payer name Policy type / Policy ID Covered Covered libertarian's Policy Plan Coverage type libertarian ID relationship to [employer] Information sierra
[2020-05-17] MEDS ORDERED: LIDOCAINE 5% TOPICAL PATCH TP ONE (19:38)
[2020-05-17] MEDS ORDERED: LIDOCAINE 5% TOPICAL PATCH ONE (19:45)
--- NOTE | 2020-05-17 20:07 | PDOC ---
History of Present Illness - General Chief Complaint: Back Pain Stated Complaint: BACK PAIN Time Seen by Provider: 05/17/20 19:05 History Source: Patient Exam Limitations: No Limitations - History of Present Illness Initial Comments: 05/17/20 20:00 Patient is a 54-year-old female with a history of hypertension presents to the ED with left lumbar back pain that started 1 week ago after helping her father move. She states the pain started soon after she helped her dad move. She denies any numbness or tingling. She denies any urinary or fecal incontinence or retention. She states the pain radiates down her left buttocks and left lower extremity. She denies any saddle anesthesia. The patient states she has been taking ibuprofen, Tylenol, muscle creams, and she has taken Tylenol 3 without any relief. The patient states that she had a 2 level lumbar fusion a few years ago. She has not called her surgeon. She is unable to remember the name of her surgeon. Past History - Medical History Allergies/Adverse Reactions: Allergies Allergy/AdvReac Type Severity Reaction Status Date / Time No Known Allergies Allergy Verified 05/17/20 19:00 Home Medications: Ambulatory Orders Montelukast Sodium [Singulair] 10 mg PO HS 04/26/18 Sulfamethoxazole/Trimethoprim [Bactrim *Ds*] 1 each PO BID #10 tablet 04/26/18 Levocetirizine Dihydrochloride [Xyzal] 5 mg PO DAILY #30 tablet 10/03/18 Methylprednisolone [Medrol Dose Jb] 4 mg PO ASDIR #21 tablet 10/03/18 Hydrocodone/Acetaminophen [Glyndon 5-325 Tablet] 1 each PO TID PRN 2 Days #6 tablet MDD 3 05/17/20 Anemia: No Asthma: Yes Cardiac Disorders: No CVA: No COPD: No CHF: No Diabetes: No GI Disorders: No Disorders: No HTN: Yes Hypercholesterolemia: Yes Kidney Stones: No Liver Disease: No Seizures: No Thyroid Disease: Yes (THYROID PROBLEM--H"HIGH THYROID" BUT NOT TAKING ANYTHING) - Surgical History Abdominal Surgery: Yes (g.sleeve) Gastric Stapling: No (GASTRIC SLEEVE) Orthopedic Surgery: Yes (SPINE SX DUE TO TUMOR IN SPINE 04/2012) - Reproductive History PID: No - Immunization History Td Vaccination: Yes Immunization Up to Date: Yes - Psycho-Social/Smoking History Smoking Status: No Smoking History: Never smoked Years of Tobacco Use: 2 Have you smoked in the past 12 months: No Number of Cigarettes Smoked Daily: 4 Cigars Per Day: 0 'Breaking Loose' booklet given: 10/28/14 Review of Systems - Review of Systems Comments:: 05/17/20 20:01 - Review of Systems Able to Perform ROS?: Yes Constitutional: No: Fever, Chills, Loss of Appetite, Night Sweats, Weakness HEENTM: No: Eye Pain, Vision changes, Ear Pain, Throat Pain, Throat Swelling, Mouth Pain, Difficulty Swallowing Respiratory: No: Cough, Shortness of Breath, Wheezing, Sputum Production Cardiac (ROS): No: Chest Pain, Chest Tightness, Palpitations, Irregular Heart Beat, Edema ABD/GI: No: Nausea, Vomiting, Abdominal Pain, Diarrhea : No Dysuria, No Hematuria, No Frequency, No Urgency Musculoskeletal: No: Muscle Pain, Joint Pain, Muscle Weakness, Neck Pain; positive: Left low back pain Integumentary: No: Lesions, Rash Neurological: No: Headache, Numbness, Tingling, Weakness, Speech Difficulties *Physical Exam - Vital Signs Last Vital Signs Temp Pulse Resp BP Pulse Ox 94 H 18 110/75 100 05/17/20 18:57 05/17/20 18:57 05/17/20 18:57 05/17/20 18:57 - Physical Exam 05/17/20 20:02 - Physical Exam General Appearance: Nourished, Appropriately Dressed, No Distress HEENT: EOMI, Normal Voice, Hearing Grossly Normal Neck: Supple, No Lymphadenopathy (R), No Lymphadenopathy (L), No Rigidity, No Decreased range of motion Respiratory/Chest: Lungs Clear, Normal Breath Sounds. No Respiratory Distress, No Accessory Muscle Use Cardiovascular: Regular Rhythm, Regular Rate, S1, S2 Gastrointestinal/Abdominal: Normal Bowel Sounds, Soft. Non-tender, No Guarding, No Rebound, No Rigidity Musculoskeletal: Normal Inspection. No Decreased Range of Motion; left lumbar and buttock tenderness to palpation. No midline back tenderness to palpation. No saddle anesthesia appreciated. Strength 5/5 bilateral lower extremities. EHL intact bilaterally. Extremity: Normal Capillary Refill, Normal Inspection Integumentary: Normal Color, Dry. No Rash Neurologic: art psychotherapist II-XII NML intact, Fully Oriented, Alert, Normal Mood/Affect, Normal Response ED Treatment Course - RADIOLOGY Radiology Studies Ordered: Category Date Time Status SPINE-LUMBAR ONLY [RAD] Stat Radiology 05/17/20 19:20 Taken - Medications Given in the ED: ED Medications Discontinued Medications Generic Name Dose Route Start Last Admin Trade Name Martha PRN Reason Stop Dose Admin Lidocaine 1 patch 05/17/20 19:38 05/17/20 19:50 Lidocaine 5% Topical Patch TP 05/17/20 19:39 1 patch ONCE ONE Administration Medical Decision Making - Medical Decision Making 05/17/20 20:03 Assessment: Patient is a 54-year-old female with lumbar back pain for 1 week after helping her father move. Plan: Lumbar x-ray shows a lucency surrounding the L4 screw which appears slightly worse than imaging previously reviewed from 06/23/2017. This could indicate screw loosening. The patient has been made aware of these findings and she has been made aware that she must follow-up with her spine surgeon as soon as possible for repeat evaluation. She has been made aware that she likely will need an MRI for further evaluation. This finding is likely not acute. A Lidoderm patch was placed in the left lumbar region. The patient will get a prescription for Glyndon for 2 days for better pain control. The patient states she will call her surgeon tomorrow. She has been given strict return precautions. She understands and agrees with this treatment plan and she is stable for discharge. Discharge - Discharge Information Problems reviewed: Yes Clinical Impression/Diagnosis: Lumbar back pain with radiculopathy affecting left lower extremity Condition: Stable Disposition: HOME - Additional Discharge Information Prescriptions: Hydrocodone/Acetaminophen [Glyndon 5-325 Tablet] 1 each PO TID PRN 2 Days #6 tablet MDD 3 PRN Reason: Pain - Follow up/Referral Referrals: Mounika Aquino MD [Primary Care Provider] - 2 Days - Patient Discharge Instructions Patient Printed Discharge Instructions: DI for Low Back Pain Additional Instructions: Be sure to call your spine surgeon and see him within the next 1 week for repeat evaluation. I have discussed with you that there may be some loosening surrounding your L4 screw but this is unlikely secondary to the heavy lifting you were doing 1 week ago. Take the Glyndon only as needed for severe pain. You can continue with taking ibuprofen, Tylenol, [id number] muscle creams for your pain. Return to the emergency department for worsening pains, numbness or tingling down your legs, difficulty holding your stool or urine or any other worsening symptoms. - Post Discharge Activity Work/Back to School Note: Back to Work
[2020-05-17] MEDS ORDERED: LIDOCAINE PATCH REMOVAL MC SCH (22:00)
== END 2020-05-17 20:23 | disposition home or self-care (01) ==
LOC: JERFT 18:50
DX: M54.15 Radiculopathy, thoracolumbar region (principal)
CPT/HCPCS: 72100-TC-FY; 99284-25